=== PATIENT | female | born 1990 ===

== ENCOUNTER 2018-08-18 11:25 | Inpatient (IN) | payer OTHER ==
[~2018-08-18] VITALS: Ht 157.5 cm; Wt 93.4 kg
[2018-08-18] MEDS ORDERED: PRENATAL TABLE1 EAC1 PO (11:28)
== END 2018-08-20 15:04 | DRG 807 ==
LOC: OB/GYN 11:25 → LDR 11:25 → OB/GYN 08-19 07:22
PROC: 10E0XZZ Delivery of Products of Conception, External Approach (ICD-10-PCS; principal; 2018-08-18)
PROC: 0UQMXZZ Repair Vulva, External Approach (ICD-10-PCS; 2018-08-18)
PROC: 4A1HXCZ Monitoring of Products of Conception, Cardiac Rate, External Approach (ICD-10-PCS; 2018-08-18)
DX: O42.913 Preterm premature rupture of membranes, unspecified as to length of time between rupture and onset of labor, third trimester (principal); O71.82 Other specified trauma to perineum and vulva; Z37.0 Single live birth; Z3A.36 36 weeks gestation of pregnancy

== ENCOUNTER 2022-06-20 18:50 | Emergency (ER) | payer OTHER ==
[~2022-06-20] VITALS: Ht 165.1 cm; Wt 63.5 kg
[~2022-06-20 18:50] MED LIST: PRENATAL TABLE1 EAC1 PO
[2022-06-20] MEDS ORDERED: LEXAPRO5 MG (19:38)
[2022-06-20] MEDS ORDERED: DEPAKOTE ER250 MG (19:38)
[2022-06-20] MEDS ORDERED: CLONAZEPAM0.5 M1 (19:38)
[2022-06-20] MEDS ORDERED: SYNTHROID150 MCG (19:38)
[2022-06-20] MEDS ORDERED: AMBIEN10 MG (19:38)
== END 2022-06-20 22:24 | disposition home or self-care (01) ==
LOC: ER 18:50
DX: S09.90XA Unspecified injury of head, initial encounter (principal); W18.30XA Fall on same level, unspecified, initial encounter; Y93.9 Activity, unspecified; Y92.413 State road as the place of occurrence of the external cause; F41.9 Anxiety disorder, unspecified